=== PATIENT | female | born 1965 ===

== ENCOUNTER 2018-10-15 11:19 | Emergency (ER) | payer BC ==
[2018-10-15] MEDS ORDERED: 0.9 % SODIUM CHLORIDE 1,000 ML BAG IV ONE (12:00)
[2018-10-15 12:28] LABS: BASO % 0.2 % (0-6); EOS % 0.2 % (0-6); GRAN % 79.8 % (47-80); HEMATOCRIT 44.7 % (35.0-47.0); HEMOGLOBIN 15.3 gm/dl (11.6-16.0); LYMPH % 15.6 % (16-45); MEAN CELL VOLUME 88.2 fl (81-97); MEAN CORPUSCULAR HEMOGLOBIN 30.2 pg (27-33); MEAN CORPUSCULAR HGB CONC 34.2 g/dl (32-36); MONO % 4.2 % (0-9); PLATELET COUNT 314 K/uL (130-400); RED BLOOD COUNT 5.07 M/uL (3.80-5.40); RED CELL DISTRIBUTION WIDTH 13.1 % (11.5-14.5)
[2018-10-15 13:09] LABS: BLOOD UREA NITROGEN 12 mg/dL (6-20); CREATININE 0.7 mg/dL (0.5-0.9); EST GLOMERULAR FILTRATION RATE > 60 mL/min
[2018-10-15 13:12] LABS: GLUCOSE,RANDOM 115 mg/dL (74-109)
--- NOTE | 2018-10-15 14:06 | Emergency Department Record ---
History of Present Illness - General Chief Complaint: Dizziness Stated Complaint: head injury, Nausea, HTN Time Seen by Provider: 10/15/18 11:53 Source: Patient Mode of Arrival: Ambulatory Limitations: No limitations - History of Present Illness Initial Comments: pt was sent here from clinic in [place] because she fell and had a head injury 3wks ago and now feels off balance and has n/v. she also has tinnitis but has had that off and on for months MD Complaint: Dizziness, Difficulty walking -: Unknown Timing: Awoke with symptoms, Sudden onset Description: Nausea, Sense of movement History of Same: No History of Trauma: Yes (1 month ago) Severity: Mild Improves With: Remaining still Worsens With: Movement, Position Associated Symptoms: Denies other symptoms - [place] Coma Scale Eye Response: (4) Open spontaneously Motor Response: (6) Obeys commands Verbal Response: (5) Oriented [place] Total: 15 - Symptoms of Stroke Symptoms of stroke: Dizziness, Vertigo - Related Data Previous Rx's Medication Instructions Recorded Azithromycin [Zithromax] 250 mg PO DAILY #6 tab 10/15/18 Allergies Allergy/AdvReac Type Severity Reaction Status Date / Time amoxicillin Allergy RASH Verified 10/15/18 11:37 ampicillin Allergy RASH Verified 10/15/18 11:37 Travel Screening - Travel/Exposure Within Last 30 Days Have you traveled within the last 30 days?: No - Travel/Exposure Within Last Year Have you traveled outside the [place] in the last year?: No - Additonal Travel Details Have you been exposed to anyone with a communicable illness?: No - Travel Symptoms Symptom Screening: None Review of Systems Reviewed: No additional complaints except as noted below Constitutional: Reports: As per HPI. Denies: Chills, Fever, Malaise, Night sweats, Weakness, Weight change Eyes: Reports: As per HPI. Denies: Eye discharge, Eye pain, Photophobia, Vision change ENT: Reports: As per HPI. Denies: Congestion, Dental pain, Ear pain, Epistaxis , Hearing loss, Throat pain Respiratory: Reports: As per HPI. Denies: Cough, Dyspnea, Hemoptysis, Stridor, Wheezes Cardiovascular: Reports: As per HPI. Denies: Arrhythmia, Chest pain, Dyspnea on exertion, Edema, Murmurs, Orthopnea, Palpitations, Paroxysmal nocturnal dyspnea, Rheumatic Fever, Syncope Endocrine: Reports: As per HPI. Denies: Fatigue, Heat or cold intolerance, Polydipsia, Polyuria Gastrointestinal: Reports: As per HPI. Denies: Abdominal pain, Constipation, Diarrhea, Hematemesis, Hematochezia, Melena, Nausea, Vomiting Genitourinary: Reports: As per HPI. Denies: Abnormal menses, Discharge, Dyspareunia, Dysuria, Frequency, Hematuria, Incontinence, Retention, Urgency Musculoskeletal: Reports: As per HPI. Denies: Arthralgia, Back pain, Gout, Joint swelling, Myalgia, Neck pain Skin: Reports: As per HPI. Denies: Bruising, Change in color, Change in hair/ nails, Lesions, Pruritus, Rash Neurological: Reports: As per HPI. Denies: Abnormal gait, Confusion, Headache, Numbness, Paresthesias, Seizure, Tingling, Tremors, Vertigo, Weakness Psychiatric: Reports: As per HPI. Denies: Anxiety, Auditory hallucinations, Depression, Homicidal thoughts, Suicidal thoughts, Visual hallucinations Hematological/Lymphatic: Reports: As per HPI. Denies: Anemia, Blood Clots, Easy bleeding, Easy bruising, Swollen glands Past Medical History - SOCIAL HISTORY Smoking Status: Never smoker Alcohol Use: Rare Drug Use: None - RESPIRATORY Hx Respiratory Disorders: No - CARDIOVASCULAR Hx Cardio Disorders: No - NEURO Hx Neuro Disorders: No - GI Hx GI Disorders: No - Hx Genitourinary Disorders: No - ENDOCRINE Hx Endocrine Disorders: No - MUSCULOSKELETAL Hx Musculoskeletal Disorders: No - PSYCH Hx Psych Problems: No - HEMATOLOGY/ONCOLOGY Hx Hematology/Oncology Disorders: No Family Medical History Any Significant Family History?: No Physical Exam - General General Appearance: Alert, Oriented x3, Cooperative, Mild distress - Head Head exam: Normal inspection - Eye Eye exam: Normal appearance, PERRL, EOMI Pupils: Normal accommodation - ENT ENT exam: Normal exam, Mucous membranes moist, Normal external ear exam, Normal orophraynx, TM's normal bilaterally Ear exam: Normal external inspection. negative: External canal tenderness Nasal Exam: Normal inspection. negative: Discharge, Sinus tenderness Mouth exam: Normal external inspection, Tongue normal Teeth exam: Normal inspection. negative: Dental caries Throat exam: Normal inspection. negative: Tonsillar erythema, Tonsillar exudate - Neck Neck exam: Normal inspection, Full ROM. negative: Tenderness - Respiratory Respiratory exam: Normal lung sounds bilaterally. negative: Respiratory distress - Cardiovascular Cardiovascular Exam: Regular rate, Normal rhythm, Normal heart sounds - GI/Abdominal GI/Abdominal exam: Soft, Normal bowel sounds. negative: Tenderness - Rectal Rectal exam: Deferred - exam: Deferred - Extremities Extremities exam: Normal inspection, Full ROM, Normal capillary refill. negative: Tenderness - Back Back exam: Reports: Normal inspection, Full ROM. Denies: Muscle spasm, Rash noted, Tenderness - Neurological Neurological exam: Alert, CN II-XII intact, Normal gait, Oriented X3 - Psychiatric Psychiatric exam: Normal affect, Normal mood - Skin Skin exam: Dry, Intact, Normal color, Warm Course Vital Signs 10/15/18 10/15/18 11:39 13:11 Temperature 97.4 F L Pulse Rate 83 Pulse Rate [ 84 Pulse Ox Probe] Respiratory 20 18 Rate Blood Pressure 163/98 Blood Pressure 172/100 [Left Arm] Pulse Ox 99 97 - Reevaluation(s) Reevaluation #1: 10/15/18 14:07 ct head neg except sinusitis on left. ct cspine pos for arthritis Medical Decision Making - Lab Data Result diagrams: 10/15/18 12:10 10/15/18 12:10 Lab Results 10/15/18 10/15/18 Range/Units 12:10 12:10 WBC 8.0 (4.2-12.2) K/uL RBC 5.07 (3.80-5.40) M/uL Hgb 15.3 (11.6-16.0) gm/dl Hct 44.7 (35.0-47.0) % MCV 88.2 (81-97) fl MCH 30.2 (27-33) pg MCHC 34.2 (32-36) g/dl RDW 13.1 (11.5-14.5) % Plt Count 314 (130-400) K/uL MPV 9.0 (7.4-10.4) fl Gran % 79.8 (47-80) % Lymphocytes % 15.6 L (16-45) % Monocytes % 4.2 (0-9) % Eosinophils % 0.2 (0-6) % Basophils % 0.2 (0-6) % Sodium 138 (136-145) mmol/L Potassium 4.3 (3.4-4.5) mmol/L Chloride 101 (98-107) mmol/L Carbon Dioxide 25.0 (22-29) mmol/L Anion Gap 12.0 (7-16) BUN 12 (6-20) mg/dL Creatinine 0.7 (0.5-0.9) mg/dL Estimated GFR > 60 mL/min Random Glucose 115 H (74-109) mg/dL Calcium 9.5 (8.6-10.0) mg/dL Disposition Disposition: Discharge Clinical Impression: Vertigo Sinusitis Qualifiers: Sinusitis location: ethmoidal Chronicity: acute Recurrence: non-recurrent Qualified Code(s): J01.20 - Acute ethmoidal sinusitis, unspecified Vomiting Qualifiers: Vomiting type: unspecified Vomiting Intractability: non-intractable Nausea presence: with nausea Qualified Code(s): R11.2 - Nausea with vomiting, unspecified Hypertension Qualifiers: Hypertension type: essential hypertension Qualified Code(s): I10 - Essential ( primary) hypertension Disposition: Home, Self-Care Condition: (1) Good Instructions: Vertigo (ED), Meniere Disease (ED), Sinusitis (ED), Warm Compress or Soak (ED) Additional Instructions: follow up with family doctor this week. return sooner if worse. monitor blood pressures. Prescriptions: Azithromycin [Zithromax] 250 mg PO DAILY #6 tab Quality - Quality Measures Quality Measures: N/A - Blood Pressure Screening Does Patient Have Any of the Following: No Blood Pressure Classification: Hypertensive Reading Systolic Measurement: 163 Diastolic Measurement: 98 Screening for High Blood Pressure: < First Hypertensive BP, F/U Documented > [ G8950] First Hypertensive Follow-up Interventions: Follow-up with rescreen GT 1 day and LT 4 weeks.
--- NOTE | 2018-10-15 15:28 | Emergency Department Record ---
History of Present Illness - General Chief Complaint: Dizziness Stated Complaint: head injury, Nausea, HTN Time Seen by Provider: 10/15/18 11:53 Source: Patient Mode of Arrival: Ambulatory Limitations: No limitations - History of Present Illness -: Unknown Timing: Awoke with symptoms, Sudden onset Description: Nausea, Sense of movement History of Same: No History of Trauma: Yes (1 month ago) Severity: Mild Improves With: Remaining still Worsens With: Movement, Position Associated Symptoms: Denies other symptoms - [place] Coma Scale Eye Response: (4) Open spontaneously Motor Response: (6) Obeys commands Verbal Response: (5) Oriented [place] Total: 15 - Symptoms of Stroke Symptoms of stroke: Dizziness, Vertigo - Related Data Previous Rx's Medication Instructions Recorded Azithromycin [Zithromax] 250 mg PO DAILY #6 tab 10/15/18 Allergies Allergy/AdvReac Type Severity Reaction Status Date / Time amoxicillin Allergy RASH Verified 10/15/18 11:37 ampicillin Allergy RASH Verified 10/15/18 11:37 Travel Screening - Travel/Exposure Within Last 30 Days Have you traveled within the last 30 days?: No - Travel/Exposure Within Last Year Have you traveled outside the [place] in the last year?: No - Additonal Travel Details Have you been exposed to anyone with a communicable illness?: No - Travel Symptoms Symptom Screening: None Review of Systems Constitutional: Reports: As per HPI. Denies: Chills, Fever, Malaise, Night sweats, Weakness, Weight change Eyes: Reports: As per HPI. Denies: Eye discharge, Eye pain, Photophobia, Vision change ENT: Reports: As per HPI. Denies: Congestion, Dental pain, Ear pain, Epistaxis , Hearing loss, Throat pain Respiratory: Reports: As per HPI. Denies: Cough, Dyspnea, Hemoptysis, Stridor, Wheezes Cardiovascular: Reports: As per HPI. Denies: Arrhythmia, Chest pain, Dyspnea on exertion, Edema, Murmurs, Orthopnea, Palpitations, Paroxysmal nocturnal dyspnea, Rheumatic Fever, Syncope Endocrine: Reports: As per HPI. Denies: Fatigue, Heat or cold intolerance, Polydipsia, Polyuria Gastrointestinal: Reports: As per HPI. Denies: Abdominal pain, Constipation, Diarrhea, Hematemesis, Hematochezia, Melena, Nausea, Vomiting Genitourinary: Reports: As per HPI. Denies: Abnormal menses, Discharge, Dyspareunia, Dysuria, Frequency, Hematuria, Incontinence, Retention, Urgency Musculoskeletal: Reports: As per HPI. Denies: Arthralgia, Back pain, Gout, Joint swelling, Myalgia, Neck pain Skin: Reports: As per HPI. Denies: Bruising, Change in color, Change in hair/ nails, Lesions, Pruritus, Rash Neurological: Reports: As per HPI. Denies: Abnormal gait, Confusion, Headache, Numbness, Paresthesias, Seizure, Tingling, Tremors, Vertigo, Weakness Psychiatric: Reports: As per HPI. Denies: Anxiety, Auditory hallucinations, Depression, Homicidal thoughts, Suicidal thoughts, Visual hallucinations Hematological/Lymphatic: Reports: As per HPI. Denies: Anemia, Blood Clots, Easy bleeding, Easy bruising, Swollen glands Past Medical History - SOCIAL HISTORY Smoking Status: Never smoker Alcohol Use: Rare Drug Use: None - RESPIRATORY Hx Respiratory Disorders: No - CARDIOVASCULAR Hx Cardio Disorders: No - NEURO Hx Neuro Disorders: No - GI Hx GI Disorders: No - Hx Genitourinary Disorders: No - ENDOCRINE Hx Endocrine Disorders: No - MUSCULOSKELETAL Hx Musculoskeletal Disorders: No - PSYCH Hx Psych Problems: No - HEMATOLOGY/ONCOLOGY Hx Hematology/Oncology Disorders: No Family Medical History Any Significant Family History?: No Physical Exam - General Limitations: No limitations Course Vital Signs 10/15/18 10/15/18 10/15/18 11:39 13:11 14:25 Temperature 97.4 F L 97.7 F Pulse Rate 83 83 Pulse Rate [ 84 Pulse Ox Probe] Respiratory 20 18 18 Rate Blood Pressure 163/98 148/84 Blood Pressure 172/100 [Left Arm] Pulse Ox 99 97 97 - Reevaluation(s) Reevaluation #1: 10/15/18 15:26 pt feels much better. pt told of need to get us of thyroid Medical Decision Making - Lab Data Result diagrams: 10/15/18 12:10 10/15/18 12:10 Lab Results 10/15/18 10/15/18 Range/Units 12:10 12:10 WBC 8.0 (4.2-12.2) K/uL RBC 5.07 (3.80-5.40) M/uL Hgb 15.3 (11.6-16.0) gm/dl Hct 44.7 (35.0-47.0) % MCV 88.2 (81-97) fl MCH 30.2 (27-33) pg MCHC 34.2 (32-36) g/dl RDW 13.1 (11.5-14.5) % Plt Count 314 (130-400) K/uL MPV 9.0 (7.4-10.4) fl Gran % 79.8 (47-80) % Lymphocytes % 15.6 L (16-45) % Monocytes % 4.2 (0-9) % Eosinophils % 0.2 (0-6) % Basophils % 0.2 (0-6) % Sodium 138 (136-145) mmol/L Potassium 4.3 (3.4-4.5) mmol/L Chloride 101 (98-107) mmol/L Carbon Dioxide 25.0 (22-29) mmol/L Anion Gap 12.0 (7-16) BUN 12 (6-20) mg/dL Creatinine 0.7 (0.5-0.9) mg/dL Estimated GFR > 60 mL/min Random Glucose 115 H (74-109) mg/dL Calcium 9.5 (8.6-10.0) mg/dL Disposition Disposition: Discharge Clinical Impression: Vertigo Sinusitis Qualifiers: Sinusitis location: ethmoidal Chronicity: acute Recurrence: non-recurrent Qualified Code(s): J01.20 - Acute ethmoidal sinusitis, unspecified Vomiting Qualifiers: Vomiting type: unspecified Vomiting Intractability: non-intractable Nausea presence: with nausea Qualified Code(s): R11.2 - Nausea with vomiting, unspecified Hypertension Qualifiers: Hypertension type: essential hypertension Qualified Code(s): I10 - Essential ( primary) hypertension Disposition: Home, Self-Care Condition: (1) Good Instructions: Sinusitis (ED), Meniere Disease (ED), Vertigo (ED), Warm Compress or Soak (ED) Additional Instructions: follow up with family doctor this week. return sooner if worse. monitor blood pressures. Prescriptions: Azithromycin [Zithromax] 250 mg PO DAILY #6 tab Forms: Patient Portal Access Quality - Quality Measures Quality Measures: N/A - Blood Pressure Screening Does Patient Have Any of the Following: No Blood Pressure Classification: Pre-Hypertensive BP Reading Systolic Measurement: 148 Diastolic Measurement: 84 Screening for High Blood Pressure: < First Hypertensive BP, F/U Documented > [ G8950] First Hypertensive Follow-up Interventions: Follow-up with rescreen GT 1 day and LT 4 weeks.
[2018-10-15 15:48] LABS: THYROID STIMULATING HORMONE 1.16 uIU/mL (0.270-4.20)
[2018-10-15 15:49] LABS: THYROXINE (T4) 7.6 ug/dL (4.5-11.7)
--- NOTE | 2018-10-17 10:53 | CT SCAN REPORT ---
EXAM: CT OF THE BRAIN WITHOUT CONTRAST HISTORY: FALL THREE WEEKS AGO STRIKING LEFT POSTERIOR ASPECT OF HEAD. DIZZINESS WITH NAUSEA AND VOMITING TODAY. TECHNIQUE: Routine noncontrast CT examination of the head was obtained. Comparison: No prior imaging of the head available for comparison. Same day noncontrast CT of the cervical spine. FINDINGS: The ventricles and subarachnoid spaces are normal in size. No suspicious area of abnormally increased or decreased attenuation is noted throughout the brain substance. No abnormal extraaxial fluid collection is seen. No skull fracture is identified. There is mucosal thickening within the inferior aspect of the left frontal sinus and within a few anterior ethmoid air cells on the left. There is opacification of a few inferior left mastoid air cells consistent with retained secretions or mild inflammation. The visualized paranasal sinuses and mastoid air cells are otherwise clear. The orbits as visualized are unremarkable. IMPRESSION: 1. NO ACUTE INTRACRANIAL ABNORMALITY NOR SKULL FRACTURE. 2. MUCOSAL THICKENING WITHIN THE LEFT FRONTAL SINUS AND SEVERAL ANTERIOR LEFT ETHMOID AIR CELLS. OPACIFICATION OF A FEW INFERIOR LEFT MASTOID AIR CELLS CONSISTENT WITH RETAINED SECRETIONS OR MILD CHRONIC INFLAMMATION. JOB NUMBER: [id number] [facility]
--- NOTE | 2018-10-17 11:10 | CT SCAN REPORT ---
EXAM: CT OF THE CERVICAL SPINE WITHOUT CONTRAST HISTORY: FALL THREE WEEKS AGO HITTING LEFT POSTERIOR ASPECT OF HEAD. DIZZINESS WITH NAUSEA AND VOMITING TODAY. TECHNIQUE: Thin collimation helical CT examination of the cervical spine was performed without intravenous contrast in the axial plane. Coronal and sagittal reformatted images are generated and reviewed. Comparison: No prior imaging of the cervical spine available for comparison. Same day noncontrast CT of the head. FINDINGS: There is normal bone mineralization. There is mild reversal of the normal cervical lordosis centered at the C4-C5 level. The vertebral bodies are otherwise normal in alignment and height. No acute fracture, destructive bone lesion or prevertebral soft tissue swelling is seen. Moderate hypertrophic degenerative changes of the atlantodental joint are present. Multilevel degenerative disk/degenerative end plate changes are identified most pronounced at the C5-C6 level where the changes are moderate in degree including exuberant anterior marginal end plate spurring. Posterior disk bulging and end plate spurring at this level appears to cause mild central canal stenosis and lateral recess narrowing. No other central canal stenosis is seen. Multilevel uncovertebral joint spurring is present and there is mild multilevel facet arthropathy bilaterally. Multilevel neural foraminal narrowing is present most pronounced at the C5-C6 level where the narrowing is moderate in degree bilaterally. There are possible small thyroid nodules with the largest located anteriorly within the right lobe measuring 6 mm. Further evaluation with thyroid ultrasound is recommended. There is otherwise no evidence of cervical mass nor gross adenopathy. The lung apices are clear. IMPRESSION: 1. REVERSAL OF THE NORMAL CERVICAL LORDOSIS LIKELY DUE TO POSITIONING OR MUSCLE SPASM. 2. NO ACUTE FRACTURE, SUBLUXATION, OR PREVERTEBRAL SOFT TISSUE SWELLING. 3. MULTILEVEL DEGENERATIVE CHANGES, DISCUSSED ABOVE. NOT MENTIONED ABOVE ARE MODERATE DEGENERATIVE CHANGES OF THE TEMPOROMANDIBULAR JOINTS. 4. SMALL HYPODENSE THYROID NODULES ARE QUESTIONED. FURTHER EVALUATION WITH THYROID ULTRASOUND IS RECOMMENDED. JOB NUMBER: [id number] [facility]
== END 2018-10-15 14:29 | disposition home or self-care (01) ==
LOC: ER 11:19
DX: R42 Dizziness and giddiness (principal); J01.20 Acute ethmoidal sinusitis, unspecified; R11.2 Nausea with vomiting, unspecified; I10 Essential (primary) hypertension; Z87.820 Personal history of traumatic brain injury
CPT/HCPCS: 70450; 72125; 72126; 80048; 84436; 84443; 84479; 85025; 96360; 96361; 99284; J7030